=== PATIENT | female | born 1960 | race Caucasian/White ===

== ENCOUNTER → 2017-10-02 | Outpatient (CLI) | payer BC, MEDICARE ==
[~2017-10-02] MED LIST: AEC81 PO; BIEST TP; CELE50CA2 PO; METO-408 PO; PROG100C6 PO; SIMV40TA59 PO; TESTOSTERONE TP
== END ==
LOC: RAH 12:33
DX: Z12.31 Encounter for screening mammogram for malignant neoplasm of breast (principal)
CPT/HCPCS: 77067

== ENCOUNTER → 2020-01-02 | Outpatient (CLI) | payer BC, MEDICARE ==
[~2020-01-02] MED LIST changes: +PROG100C11 PO; -PROG100C6 PO
== END | disposition home or self-care (01) ==
LOC: RAH 11:04
DX: Z12.31 Encounter for screening mammogram for malignant neoplasm of breast (principal)
CPT/HCPCS: 77067

== ENCOUNTER → 2021-07-23 | Outpatient (CLI) | payer BC, MEDICARE ==
[~2021-07-23] MED LIST changes: -BIEST TP; -CELE50CA2 PO; +ESTRADIOL TP; +LISI20TA24 PO; +TESTOST TP; -TESTOSTERONE TP
== END | disposition home or self-care (01) ==
LOC: RAH 15:28
PROVIDERS: ATTEND Physician Assistant Medical
DX: Z12.31 Encounter for screening mammogram for malignant neoplasm of breast (principal)
CPT/HCPCS: 77067

== ENCOUNTER → 2021-12-14 | Outpatient (CLI) | payer BC | END | disposition home or self-care (01) | LOC: RAH 12:25 | PROVIDERS: ATTEND Orthopaedic Surgery | DX: M75.122 Complete rotator cuff tear or rupture of left shoulder, not specified as traumatic (principal); M25.812 Other specified joint disorders, left shoulder | CPT/HCPCS: 73221 ==

== ENCOUNTER 2022-06-28 06:04 | Day surgery (SDC) | payer BC ==
[2022-06-22 15:46] LABS: BASOPHILS % (AUTO) 0.9 % (0.0-5.0); HEMATOCRIT 38.5 % (36-48); LYMPHOCYTES % (AUTO) 29.4 % (21.0-51.0); MEAN CORPUSCULAR HEMOGLOBIN 34.1 pg (27.0-33.0); MEAN CORPUSCULAR HGB CONC 34.8 g/dL (32.0-36.0); MONOCYTES % (AUTO) 7.2 % (3.0-13.0); NEUTROPHILS % (AUTO) 60.4 % (40.0-77.0); PLATELET COUNT (AUTO) 390 K/uL (130-400); RED BLOOD CELL COUNT(AUTO) 3.93 MIL/uL (4.00-5.50); WHITE BLOOD COUNT (AUTO) 7.9 K/uL (4.8-10.8)
[2022-06-22 15:54] LABS: CREATININE 0.8 mg/dL (0.5-1.5); POTASSIUM 4.5 mmol/L (3.5-5.1)
[2022-06-27 12:09] VITALS: BP 127/81
[~2022-06-28] VITALS: Ht 172.7 cm; Wt 84.0 kg
[2022-06-28] VITALS (15 sets, daily range): BP systolic 99–127; BP diastolic 60–87
[~2022-06-28 06:04] MED LIST changes: -AEC81 PO; +CEFAZOLIN SODIUM 1 GM VIAL IVP SCH; -ESTRADIOL TP; +FAMO40TA7 PO; +LACTATED RINGERS 1000ML 1,000 ML IV SCH; +PANT40TA54 PO; +ROSU10TA28 PO; -SIMV40TA59 PO; -TESTOST TP
[2022-06-28] MEDS ORDERED: ROPIVACAINE 0.5% 5MG/ML 30ML IJ ONE (07:14)
[2022-06-28] MEDS ORDERED: KETOROLAC 30MG VIAL (30MG/ML) ONE ×3 (08:06→10:06)
[2022-06-28] MEDS ORDERED: PROPOFOL 10 MG/ML 20ML VIAL IV ONE (08:53)
[2022-06-28] MEDS ORDERED: FENTANYL CITRATE PF 50 MCG/1 ML 2ML VIAL ONE ×2 (08:54→09:53)
[2022-06-28] MEDS ORDERED: MIDAZOLAM HCL 1 MG/ML 2ML VIAL ONE (08:55)
[2022-06-28] MEDS ORDERED: LIDOCAINE PF 100MG/5ML (2%) SYRINGE 5ML ONE (08:55)
[2022-06-28] MEDS ORDERED: ROCURONIUM 10MG/1ML SYR 10 MG/ML ML ONE (08:55)
[2022-06-28] MEDS ORDERED: GLYCOPYRROLATE 1 MG/5 ML SYRINGE ONE ×2 (10:02→11:38)
[2022-06-28] MEDS ORDERED: NEOSTIGMINE 5MG/5ML SYR IV ONE (10:03)
[2022-06-28] MEDS ORDERED: ONDANSETRON 4MG INJ ONE (10:05)
[2022-06-28] MEDS ORDERED: HYDROCODONE/ACETAMINOPHEN 10/325 MG TAB ONE (11:41)
[2022-06-28] MEDS ORDERED: HYDROCODONE/ACETAMINOPHEN 10/325 MG TAB PO SCH (13:00)
== END 2022-06-28 12:50 | disposition home or self-care (01) ==
LOC: DAH 06:04
PROVIDERS: ATTEND Orthopaedic Surgery
DX: M75.122 Complete rotator cuff tear or rupture of left shoulder, not specified as traumatic (principal); Z20.822 Contact with and (suspected) exposure to COVID-19; M19.012 Primary osteoarthritis, left shoulder; M94.212 Chondromalacia, left shoulder; M75.52 Bursitis of left shoulder; I10 Essential (primary) hypertension; Z87.891 Personal history of nicotine dependence; Z90.49 Acquired absence of other specified parts of digestive tract; Z98.890 Other specified postprocedural states; Z90.710 Acquired absence of both cervix and uterus
CPT/HCPCS: 80048; 85025; 87426; 36415; 29827; A6260; A4663; J7120 ×2; A4565; J3010 ×2; J0690; J3490 ×2; J2710; J2001; J2250; J2704; J2405; J1885 ×3; J2795; A4649; C1713; A4215; A4223; A4222; A4221; A4600

== ENCOUNTER → 2022-12-12 | Outpatient (CLI) | payer BC ==
[~2022-12-12] MED LIST changes: -CEFAZOLIN SODIUM 1 GM VIAL IVP SCH; -LACTATED RINGERS 1000ML 1,000 ML IV SCH
== END | disposition home or self-care (01) ==
LOC: RAH 13:09
PROVIDERS: ATTEND Physician Assistant Medical
DX: Z12.31 Encounter for screening mammogram for malignant neoplasm of breast (principal)
CPT/HCPCS: 77067